=== PATIENT | female | born 1995 | race Caucasian/White ===

== ENCOUNTER → 2017-10-24 | Outpatient (CLI) | payer BC, OTHER ==
[~2017-10-24] MED LIST: DOCU-131 PO; IBUP-1223 PO; OXYC-302 PO
== END | disposition home or self-care (01) ==
LOC: RAD 17:03
PROVIDERS: ATTEND Obstetrics & Gynecology
DX: O36.4XX0 Maternal care for intrauterine death, not applicable or unspecified (principal); Z3A.10 10 weeks gestation of pregnancy
CPT/HCPCS: 76801